=== PATIENT | male | born 1955 ===

== ENCOUNTER 2020-06-11 07:21 | Emergency (ER) | payer OTHER ==
[~2020-06-11] VITALS: Ht 177.8 cm; Wt 71.7 kg
[2020-06-11] MEDS ORDERED: ZITHROMAX500 MG PO (15:30)
[2020-06-11] MEDS ORDERED: FLONASE ALLERG9.9 ML NASAL (15:30)
[2020-06-11] MEDS ORDERED: MEDROLPACK PO (15:30)
[2020-06-11] MEDS ORDERED: VISTARIL50 MG PO (15:30)
== END 2020-06-11 16:23 | disposition home or self-care (01) ==
LOC: ER 07:21
DX: H66.93 Otitis media, unspecified, bilateral (principal); H93.13 Tinnitus, bilateral; R42 Dizziness and giddiness; Z03.818 Encounter for observation for suspected exposure to other biological agents ruled out